=== PATIENT | female | born 1980 | race Hispanic/Latino ===

== ENCOUNTER 2024-12-10 06:31 | Day surgery (SDC) | payer MEDICARE ==
[2024-12-10] VITALS (11 sets, daily range): BP systolic 91–126; BP diastolic 43–79; PULSE 80–92; RESP 15–16; TEMP 97.2–97.3
[~2024-12-10] VITALS: Ht 162.6 cm; Wt 141.5 kg
[2024-12-10] MEDS ORDERED: ALBU18HF7 IH (07:07)
[2024-12-10] MEDS ORDERED: TRAZ-185 PO (07:07)
[2024-12-10] MEDS ORDERED: MONT-39 PO (07:07)
[2024-12-10] MEDS ORDERED: BUDE10.2 IH (07:07)
[2024-12-10] MEDS ORDERED: METF-444 PO (07:07)
[2024-12-10] MEDS ORDERED: ATOR40TA69 PO (07:07)
[2024-12-10] MEDS ORDERED: LISI1TAB51 PO (07:07)
[2024-12-10] MEDS ORDERED: VITAMIN D PO (07:07)
[2024-12-10] MEDS ORDERED: CITA-107 PO (07:07)
[2024-12-10] MEDS: 0.9%NACL 1000ML 1,000 ML IV ONE (07:10)
[2024-12-10] MEDS ORDERED: proPOFol 10 MG/ML 20ML VIAL IV ONE (07:49)
[2024-12-10] MEDS ORDERED: LIDOCAINE PF 100MG/5ML (2%) SYRINGE 5ML ONE (07:49)
--- NOTE | 2024-12-10 09:20 | NUR ---
Full and complete discharge instructions provided to Patient and Faily. All questions answered. VU to post Procedure instructions. All questions answered. PIV removed with catheter tip intact. W/C to POV with Family.
== END 2024-12-10 09:20 | disposition home or self-care (01) ==
LOC: ENDO 06:31 → DAH 06:31 → ENDO 09:20
PROVIDERS: ATTEND Surgery
DX: R12 Heartburn (principal); K31.89 Other diseases of stomach and duodenum; K29.60 Other gastritis without bleeding; K22.89 Other specified disease of esophagus; I10 Essential (primary) hypertension; E11.9 Type 2 diabetes mellitus without complications; J45.909 Unspecified asthma, uncomplicated; F41.9 Anxiety disorder, unspecified; F32.A Depression, unspecified; E66.01 Morbid (severe) obesity due to excess calories; K76.0 Fatty (change of) liver, not elsewhere classified; Z98.0 Intestinal bypass and anastomosis status; Z90.89 Acquired absence of other organs; Z90.49 Acquired absence of other specified parts of digestive tract; Z68.43 Body mass index [BMI] 50.0-59.9, adult; Z79.899 Other long term (current) drug therapy
CPT/HCPCS: 81025; 43239; 82948 ×2; J7030 ×2; J2003; J2704; A4620; A4215 ×2; A4223; A4222; A4221; A4663; A4606; J3490

== ENCOUNTER → 2025-05-11 | Outpatient (CLI) | payer MEDICARE, MEDICAID ==
[~2025-05-11] VITALS: Ht 162.6 cm; Wt 129.7 kg
[~2025-05-11] MED LIST: ALBU18HF7 IH; ATOR40TA69 PO; BUDE10.2 IH; BUDE10.7 IH; CETI10TA57 PO; CITA-107 PO; ERGO500093 PO; LISI1TAB51 PO; METF-444 PO; MONT-39 PO; OMEP20TA20 PO; TIRZ2.5P SQ; TRAZ-185 PO; VITAMIN D PO
[2025-05-11 11:36] LABS: BASOPHILS # (AUTO) 0.01 K/uL (0.00-0.20); BASOPHILS % (AUTO) 0.1 % (0.0-5.0); EOSINOPHILS # (AUTO) 0.06 K/uL (0.00-0.70); EOSINOPHILS % (AUTO) 0.8 % (0.0-8.0); HEMATOCRIT 35.1 % (36-48); IMMATURE GRANULOCYTE ABSOLUTE 0.03 K/uL (0-1); LYMPHOCYTES # (AUTO) 1.8 K/uL (1.0-4.8); LYMPHOCYTES % (AUTO) 24.4 % (21.0-51.0); MEAN CORPUSCULAR HEMOGLOBIN 26.4 pg (27.0-33.0); MEAN CORPUSCULAR HGB CONC 31.3 g/dL (32.0-36.0); MEAN CORPUSCULAR VOLUME 84.4 fL (79-99); MONOCYTES # (AUTO) 0.5 K/uL (0.1-1.0); MONOCYTES % (AUTO) 7.2 % (3.0-13.0); NEUTROPHILS % (AUTO) 67.1 % (40.0-77.0); PLATELET COUNT (AUTO) 286 K/uL (130-400); RED BLOOD CELL COUNT(AUTO) 4.16 MIL/uL (4.00-5.50); WHITE BLOOD COUNT (AUTO) 7.5 K/uL (4.8-10.8)
[2025-05-11 11:47] LABS: INR 1.04 (0.85-1.15)
[2025-05-11 11:48] VITALS: BP 131/52; PULSE 66; RESP 17; TEMP 97.5
[2025-05-11 11:48] LABS: CREATININE 0.6 mg/dL (0.5-1.0); PARTIAL THROMBOPLASTIN TIME 26.6 SEC (26.3-35.5); POTASSIUM 3.5 mmol/L (3.5-5.1)
--- NOTE | 2025-05-11 12:10 | EKG ---
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
== END | disposition home or self-care (01) ==
LOC: LAB 11:01 → EDSTATUS 05-13 07:30
PROVIDERS: ATTEND Surgery
DX: E66.01 Morbid (severe) obesity due to excess calories (principal); Z86.2 Personal history of diseases of the blood and blood-forming organs and certain disorders involving the immune mechanism
CPT/HCPCS: 86900; 80048; 84703; 85025; 85610; 85730; 86850; 86901; 36415; 93005; A6260